=== PATIENT | male | born 1975 | race Two or more races ===

== ENCOUNTER → 2017-03-12 | Outpatient (CLI) | payer OTHER ==
--- NOTE | 2017-03-13 07:36 | MR ---
EXAMINATION TYPE: MR cervical spine wo/w con DATE OF EXAM: 03/12/2017 6:12 PM COMPARISON: Comparison was made to imaging from an outside institution dated 07/11/2012. Report was no t available for comparison at the time of dictation. HISTORY: Headaches, Previous Surgery Cervical Spine, Previous MRI on PACS, Outside Images on PACS TECHNIQUE: Multiplanar, multisequence images of the cervical spine were acquired utilizing 20 mL intravenous Mul tiHance gadolinium contrast. Diffusion weighted imaging was performed. C2-C3: No evidence for degenerative disc disease. No disc bulge/herniation or protrusion. No Canal stenosis. Foramina are patent bilaterally. C3-C4: A small central disc osteophyte complexes present. No evidence of spinal canal stenosis nor ne ural foraminal narrowing. Subarachnoid fluid is evident between the disc osteophyte complex and the v entral thecal sac. C4-C5: Central disc osteophyte complex is present abutting the ventral thecal sac with mild spinal ca nal stenosis at this level. No abnormal cord signal is associated. No neural foraminal narrowing is s een. C5-C7: There are postsurgical changes of anterior cervical fusion and discectomy. Mild uncovertebral hypertrophy on the right at C5 does not result in neural foraminal narrowing. Similarly mild uncovert ebral hypertrophy bilaterally at C6 does not result in neural foraminal narrowing. C7-T1: Mild disc desiccation is seen without evidence of herniation, spinal canal stenosis, neurofora eric narrowing. Anterior cervical fusion device spans the C5 through the C7 vertebral levels with the removal of the intervertebral discs at these levels. There is normal alignment. Cervical spinal cord is of normal s ignal. Craniovertebral junction relationships are within normal limits. There is no evidence of abn ormal postcontrast enhancement. No evidence of epidural fibrosis at the postsurgical levels. IMPRESSION: 1. Anterior cervical fusion at C5-C7 with discectomy and no abnormal enhancement to indicate epidural fibrosis. No spinal canal stenosis or neural foraminal narrowing at these levels. 2. Multilevel degenerative disc disease resulting in mild spinal canal stenosis at C4-C5. 3. No evidence of disc herniation.
--- NOTE | 2017-03-13 07:50 | MR ---
EXAMINATION TYPE: MR thoracic and lumbar spine without intravenous contrast. DATE OF EXAM: 03/12/2017 6:12 PM COMPARISON: None. HISTORY: Headaches, Previous Surgery Cervical Spine. Neck and back pain for 13 years. TECHNIQUE: Multiplanar, multisequence images of the thoracic spine and lumbar spine were acquired without the ut ilization of intravenous contrast. THORACIC SPINE: Vertebral body height and alignment are maintained. Bone marrow signal is unremarkable. Thoracic cord maintains a normal signal at all vertebral levels. A tiny disc osteophyte complex is seen at T7-T8 centrally with no evidence of resultant spinal canal stenosis. Small right foraminal disc herniation is seen at T9-T10 mildly effacing the ventral thecal sac with n o cord compression or evidence of abnormal cord signal. Mild neural foraminal narrowing is seen as a result. No other disc herniation is seen at any other thoracic vertebral level. LUMBAR SPINE: L1-L2 through L5-S1: Lumbar vertebral bodies maintain their normal height and alignment. There is no evidence of disc herniation at any intervertebral level. The spinal cord is of normal signal and morp hology and its visualized terminal portions. Conus and filum terminale are unremarkable. Mild interve rtebral disc bulge is seen at L4-L5 without evidence of spinal canal stenosis or neural foraminal skye rowing. There is no evidence of spinal canal stenosis or neural foraminal narrowing at any level. IMPRESSION: 1. Small right foraminal disc herniation at T9-T10 creating mild spinal canal stenosis and mild right neural foraminal narrowing. 2. Small broad-based disc bulge at L4-L5. No evidence of disc herniation, spinal canal stenosis nor n eural foraminal stenosis throughout the lumbar spine.
== END | disposition home or self-care (01) ==
LOC: RADMRIMAIN 16:42
PROVIDERS: ATTEND Psychiatry & Neurology Neurology
DX: M50.321 Other cervical disc degeneration at C4-C5 level (principal); M51.24 Other intervertebral disc displacement, thoracic region; M48.04 Spinal stenosis, thoracic region; M51.26 Other intervertebral disc displacement, lumbar region; Z98.1 Arthrodesis status; Z88.6 Allergy status to analgesic agent
CPT/HCPCS: 72146; 72148; 72156; A9577

== ENCOUNTER → 2025-05-30 | Day surgery (SDC) | payer MEDICARE, OTHER ==
[~2025-05-30] MED LIST: DEXAMETHASONE SOD PHOSPHATE 4 MG/ML 1 ML VIAL ONE; HYDROmorphone (PF) 1 MG/ML ONE; LIDOCAINE 1% INJ 10MG/ML (20 ML MDV) ONE; MIDAZOLAM 2 MG/2 ML VIAL ONE; PROPOFOL 10 MG/ML 20 ML VIAL IV ONE; ROCURONIUM 10 MG/ML (5 ML VIAL) IV ONE; ROPIVACAINE 5 MG/ML 30 ML VIAL ONE; SODIUM CHLORIDE 0.9% (PF) 10 ML VIAL ONE; SUCCINYLCHOLINE CHLORIDE 200 MG/10 ML VIAL IV ONE; TRANEXAMIC 1,000 MG/100ML-NACL PREMIX BAG ONE; fentaNYL (PF) 50 MCG/ML 2 ML AMP ONE
[2025-05-30] MEDS: IV FLUID CONTINUATION 1,000 ML IV ONE (11:49)
[2025-05-30 12:19] LABS: Glucose,Whole Blood 138 mg/dL (70-110)
[2025-05-30] MEDS: LACTATED RINGERS 1,000 ML IV SCH (12:21)
[2025-05-30 12:29] LABS: Basophils # (A) 0.04 10*3/uL (0.00-0.10); Basophils % (A) 0.8 %; Eosinophils # (A) 0.09 10*3/uL (0.04-0.35); Eosinophils % (A) 1.8 %; HCT 43.3 % (39.6-50.0); HGB 15.4 g/dL (13.0-17.0); Immature Platelet Fraction 7.4 % (1.1-6.1); Lymphocytes # (A) 2.04 10*3/uL (0.90-5.00); Lymphocytes % (A) 41.0 %; MCH 32.6 pg (27.0-32.0); MCHC 35.6 g/dL (32.0-37.0); MCV 91.5 fL (80.0-97.0); Monocytes # (A) 0.38 10*3/uL (0.20-1.00); Monocytes % (A) 7.6 %; Neutrophils # (A) 2.41 10*3/uL (1.80-7.70); Neutrophils % (A) 48.6 %; Platelet Count 115 10*3/uL (140-440); RBC 4.73 10*6/uL (4.40-5.60); RDW 13.6 % (11.5-14.5); WBC 4.97 10*3/uL (4.50-10.00)
[2025-05-30] MEDS: fentaNYL (PF) 50 MCG/ML 2 ML AMP IVP PRN (12:34)
[2025-05-30] MEDS: MIDAZOLAM 2 MG/2 ML VIAL IV ONE (12:34)
[2025-05-30 12:41] LABS: ALT 61 U/L (4-49); AST 54 U/L (17-59); African American GFR (CKD) >90 (>60 ml/min/1.73 sqM); Albumin 4.2 g/dL (3.5-5.0); Alkaline Phosphatase 92 U/L (38-126); Anion Gap 9 mmol/L; Blood Urea Nitrogen 7 mg/dL (9-20); Calcium 10.2 mg/dL (8.4-10.2); Carbon Dioxide 26 mmol/L (22-30); Chloride 103 mmol/L (98-107); Glucose 140 mg/dL (74-99); Non-African American GFR(CKD) >90 (>60 ml/min/1.73 sqM); Potassium 4.1 mmol/L (3.5-5.1); Sodium 138 mmol/L (137-145); Total Protein 6.7 g/dL (6.3-8.2)
[2025-05-30] MEDS: ONDANSETRON 4 MG/2 ML VIAL IVP STA ×2 (12:43→17:05)
[2025-05-30] MEDS: DEXAMETHASONE SOD PHOSPHATE 4 MG/ML 1 ML VIAL IVP STA (12:44)
--- NOTE | 2025-05-30 12:59 | P.ANPRN ---
Procedure Note - Anesthesia - Nerve Block Performed Left Adductor Canal Infusion Time Out Performed: Yes Date of Procedure: 05/30/25 Procedure Start Time: 12:34 Procedure Stop Time: 12:42 Location of Patient: PreOp Indication: Acute Post-Operative Pain, Requested by Surgeon Sedation Type: Sedate with meaningful contact maintained Preparation: Sterile Prep, Sterile Dressing Position: Supine Catheter: Indwelling Needle Types: Pajunk Needle Gauge: 18 Ultrasound used to visualize needle placement: Yes Ultrasound used to observe medication spread: Yes Injectate: 0.5% Ropivacaine (see comment for volume) (20 ml + 10 ml NS +4 mg Dexamethasone) Blood Aspirated: No Pain Paresthesia on Injection Noted: No Resistance on Injection: Normal Image Stored and Saved: Yes Events: Uneventful and Well Tolerated
--- NOTE | 2025-05-30 13:00 | P.ANPRN ---
Procedure Note - Anesthesia - Nerve Block Performed Left iPack Single Time Out Performed: Yes Date of Procedure: 05/30/25 Procedure Start Time: 12:43 Procedure Stop Time: 12:49 Location of Patient: PreOp Indication: Acute Post-Operative Pain, Requested by Surgeon Sedation Type: Sedate with meaningful contact maintained Preparation: Sterile Prep Position: Right Lateral Needle Types: Pajunk Needle Gauge: 21 Ultrasound used to visualize needle placement: Yes Ultrasound used to observe medication spread: Yes Injectate: 0.5% Ropivacaine (see comment for volume) (20 ml +10 ml NS + 4 mg Dexamethasone) Blood Aspirated: No Pain Paresthesia on Injection Noted: No Resistance on Injection: Normal Image Stored and Saved: Yes Events: Uneventful and Well Tolerated
[2025-05-30] MEDS: ceFAZolin 3,000 MG in SODIUM CHLORIDE 0.9% IRRIGATIO 3,000 ML IRRIGATION ONE (14:25)
[2025-05-30] MEDS: LACTATED RINGERS 1,000 ML IV ONE (15:28)
[2025-05-30] MEDS: HYDROmorphone 0.5 MG/0.5 ML SYRINGE IVP PRN (16:23)
[2025-05-30 16:31] VITALS: TEMP 96.8
[2025-05-30] MEDS: ROPIVACAINE 1,100 MG, SODIUM CHLORIDE 0.9% 500 ML 330 ML, EMPTY PAIN BALL 1 EACH MISCELLANE PRN (17:06)
--- NOTE | 2025-05-30 17:15 | XR ---
EXAMINATION TYPE: XR knee limited LT DATE OF EXAM: 05/30/2025 4:58 PM COMPARISON: None CLINICAL INDICATION: Male, 49 years old with history of POST PARTIAL KNEE REPLACEMENT.; PHH, pain TECHNIQUE: XR knee limited LT 2 views submitted. FINDINGS: Status post medial unicompartmental knee arthroplasty changes with hardware in appropriat e alignment and intact. No evidence of fracture. Subcutaneous lucencies and lucencies within the join t consistent with surgical changes. A fabella is present. IMPRESSION: Status post medial unicompartmental knee arthroplasty changes with hardware intact and appropriate al ignment. No fractures identified. [facility], , 05/30/2025 5:12 PM
[2025-05-30 17:27] LABS: Glucose,Whole Blood 181 mg/dL (70-110)
[2025-05-30] MEDS: HYDROcodone/APAP 7.5-325MG 1 EACH TAB PO ONE (17:32)
[2025-05-30 19:41] VITALS: BP 131/94; PULSE 64; RESP 18
--- NOTE | 2025-06-08 14:37 | P.OP ---
Date of Procedure: 05/30/25 Procedure(s) Performed: PREOPERATIVE DIAGNOSIS: Left knee severe medial compartment osteoarthritis with genu varum POSTOPERATIVE DIAGNOSIS: Left knee severe medial compartment osteoarthritis with genu varum OPERATION: Left knee medial compartment cemented unicompartmental replacement arthroplasty (metal on polyethylene) ANESTHESIA: General plus ACB and IPACK blocks for postoperative pain control ESTIMATED BLOOD LOSS: 50 ml. FREIGHT SEPARATOR: Nhung Schmitz PA-C (assistance with: patient positioning, retraction, exposure, hemostasis, leg positioning, implantation, irrigation, closure, dressing) COMPLICATIONS: None apparent. COMPONENTS IMPLANTED: Journey unicompartmental knee system from [employer] INDICATIONS: Melia is a 50 year old male with a history of left knee unicompartmental medial osteoarthritis. Conservative management has failed. He has a mild degree of arthritis involving the patellofemoral and lateral compartments. The operation of medial unicompartmental knee replacement has been discussed at length in the office, as well as potential risks and complications. These are inclusive of, but not limited to: bleeding, infection, scarring, discomfort, blood vessel and nerve damage, need for further surgery, failure to relieve symptoms, persistence, recurrence, or worsening of problems, loosening, dislocation, wear, blood clot, pulmonary embolism, , gait dysfunction, stiffness, and other risks as discussed in the office. The patient elects to proceed and the consent form has been signed. PROCEDURE: The patient was taken to the operating room and positioned on the operating room table in the supine position. Anesthesia was initiated. Care was taken to make sure that all pressure points were adequately padded. The operative lower extremity was prepped and draped in the usual aseptic fashion using ChloraPrep. Ioban drape was used for the case and the patient received intravenous antibiotics within one hour of the incision. A pneumotourniquet and leg medina were used for the case. The limb was exsanguinated with an Esmarch bandage and the tourniquet was inflated to 350 mmHg. Time-out was called confirming the patient's identity, side, procedure and administration of antibiotics and tranexamic acid. The incision was then created over the medial aspect of the knee from approximately the superior pole of the patella down to adjacent to the tibial tubercle. Incision was carried down through skin and into subcutaneous tissues and sharp dissection was carried down to fascia. Hemostasis was obtained using electrocautery. Medial parapatellar arthrotomy was performed from approximately the level of the VMO to just below the tibial surface. Partial fat pad was resected and due to the previous surgeries this patient has had, the fat pad was somewhat scarred. These adhesions within the fat pad were released using cautery. This allowed better patellar mobilization. Excellent visualization of the medial compartment was accomplished. Retractors were placed within the notch and the medial condyle. Careful release of the anterior medial soft tissues from bone was accomplished using sharp dissection. This was carried to but not into the medial collateral ligament. Tibial cut was performed first. The guide for the tibial cut was attached to the patient's lower extremity and the guide was placed against the bone. The boom of the guide was placed parallel to the palpable anterior surface of the tibia and arranged to be in line with the second metatarsal area the cut was planned to be exactly adjacent to the notch region of the medial femoral condyle. It should be noted that the patient's ACL and PCL were intact and normal in appearance. The depth of resection was set using the 4 mm guide. The guide was then pinned into position and the cut was created using an oscillating saw along with a reciprocating saw for the sagittal cut. The tibial fragment was then removed and the surface finished. Medial meniscus remnant was removed at this time. Next, the knee was placed into full extension and various spacers were placed in the medial compartment to assess the distance. The size 8 mm spacer was selected and a guide was placed onto this spacer and the guide was held into place on the femur with a headed pin. The distal femoral cut was then created through this guide and the fragment was removed. Flexion and extension gaps were then assessed and found to be satisfactory. The knee was then bent to 90 retractors were placed and the guide for femoral finishing was placed. Femur was finished using this guide. Next, tibia was sized and finished and the trial component was left in place. Femoral trial component was placed, and 8 mm spacer was utilized for trial. Excellent range of motion, stability, and alignment were noted. The trial components were then removed and the femoral and tibial surfaces were pulse lavaged and dried for cementing. Cement was mixed on the back table and applied to the final components. Cement was also pressurized into the bone with finger pressurization technique. Final components were then impacted into place and excess cement was removed. The 8 mm trial spacer was laced during this process. Axial force was applied to the leg during the curing process of the cement. Once the cement had fully hardened, excess cement was further removed, and the knee was assessed for range of motion stability and alignment based on the thickness of the planned polyethylene spacer. The 8 mm spacer was called for and implanted. Final range of motion and stability check was satisfactory. The tourniquet was deflated and hemostasis was obtained with electrocautery, another gram of tranexamic acid, and bone wax. Closure was performed of the fascia using a combination of #2 Ethibond suture as well as a running strata fix suture. Subcu closure was performed with 2-0 Vicryl suture in interrupted fashion followed by strata fix suture in running subcuticular fashion for the skin and cyanoacrylate topical dressing. A lightly compressive dressing was applied using Webril and an Perez wrap. The patient was then transferred to stretcher and taken to the recovery room in stable condition. Sponge and needle counts were correct.
== END | disposition home or self-care (01) ==
LOC: OR 11:26
PROVIDERS: ATTEND Orthopaedic Surgery
DX: M17.12 Unilateral primary osteoarthritis, left knee (principal); M21.162 Varus deformity, not elsewhere classified, left knee; G89.18 Other acute postprocedural pain; G47.33 Obstructive sleep apnea (adult) (pediatric); E07.9 Disorder of thyroid, unspecified; J45.909 Unspecified asthma, uncomplicated; K21.9 Gastro-esophageal reflux disease without esophagitis; F41.9 Anxiety disorder, unspecified; F31.9 Bipolar disorder, unspecified; Z79.84 Long term (current) use of oral hypoglycemic drugs; Z79.624 Long term (current) use of inhibitors of nucleotide synthesis; Z79.890 Hormone replacement therapy; Z79.1 Long term (current) use of non-steroidal anti-inflammatories (NSAID); Z79.51 Long term (current) use of inhaled steroids; Z79.899 Other long term (current) drug therapy; Z87.891 Personal history of nicotine dependence
CPT/HCPCS: 27446; 64448; 64473; 80053; 85025; 73560; C1776; C1713; C1751; J2250; J0330; J1100; J0690 ×2; J2405; J2003; J3010; J1171 ×2; J2795; J2704